=== PATIENT | male | born 2000 | race Caucasian/White ===

== ENCOUNTER 2019-06-30 19:56 | Emergency (ER) | payer OTHER ==
[~2019-06-30] VITALS: Ht 180.3 cm; Wt 79.5 kg
[2019-06-30 20:09] VITALS: TEMP 97.8
[2019-06-30] MEDS ORDERED: BENADRYL E2.5 MG/1 M PO (20:14)
[2019-06-30 20:16] VITALS: BP 145/83
[2019-06-30 21:37] VITALS: PULSE 85
== END 2019-06-30 21:37 | disposition home or self-care (01) ==
LOC: COL.ER 19:56
DX: T78.05XA Anaphylactic reaction due to tree nuts and seeds, initial encounter (principal); L50.0 Allergic urticaria; F17.210 Nicotine dependence, cigarettes, uncomplicated
CPT/HCPCS: J1100